=== PATIENT | female | born 1935 | race Caucasian/White ===

== ENCOUNTER 2016-07-10 19:54 | Emergency (ER) | payer OTHER, MEDICAID ==
[2016-07-10] MEDS ORDERED: Albuterol/Ipratropium NEB.SOL* Albuterol 2.5 MG/Ipratropium 0.5 MG 3 ML INH ONE (20:37)
--- NOTE | 2016-07-10 20:47 | UC ---
Respiratory Complaint HPI - HPI Summary HPI Summary: Cough, SOB, feverish, achy since 2 days ago. Hx of COPD and frequent pneumonia since lung CA in 2013. Has been hospitalized for this in the past. 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 ?: No Onset/Duration: Gradual Onset, Lasting Days Timing: Constant Severity Initially: Mild Severity Currently: Moderate Character: Cough: Nonproductive Aggravating Factors: Deep Breaths, Recumbent Position Alleviating Factors: Upright Position Associated Signs And Symptoms: Positive: Fever, Chills, Wheezing, URI, Nasal Congestion - Allergies/Home Medications Allergies/Adverse Reactions: Allergies Allergy/AdvReac Type Severity Reaction Status Date / Time No Known Allergies Allergy Verified 07/10/16 20:09 Home Medications: Home Medications Gabapentin (Once-Daily) [Gralise] 300 mg PO BEDTIME 07/10/16 [History Confirmed 07/10/16] Umeclidin/Vilant 62.5 MDI(NF) [ANORO 62.5/25 Ellipta DEVICE (NF)] 1 puff INH DAILY 07/10/16 [History Confirmed 07/10/16] PMH/Surg Hx/FS Hx/Imm Hx Endocrine History Of: Reports: Diabetes Cardiovascular History Of: Reports: Cardiac Disorders, Hypertension, Congestive Heart Failure, Atrial Fibrillation, Deep Vein Thrombosis Denies: Pacemaker/ICD Respiratory History Of: Reports: COPD Denies: Asthma GI/ History Of: Reports: Ulcer Neurological History Of: Denies: CVA Cancer History Of: Reports: Lung Cancer - Surgical History Surgical History: Yes Surgery Procedure, Year, and Place: AORTIC ANGIOPLASTY. BL MASECTOMY (LEFT OK TO USE PIV). CABG. HYSTERECTOMY. [facility] 2013. CATARACT. LEFT RETINAL SURGERY 2000 - Family History Known Family History: Positive: Hypertension, Diabetes - Social History Occupation: Retired Alcohol Use: None Substance Use Type: None Smoking Status (MU): Former Smoker Have You Smoked in the Last Year: No When Did the Patient Quit Smoking/Using Tobacco: QUIT MANY YEARS AGO - Immunization History Most Recent Influenza Vaccination: none Most Recent Tetanus Shot: UNSURE Most Recent Pneumonia Vaccination: none Review of Systems Constitutional: Fever, Chills, Fatigue Skin: Negative Eyes: Negative ENT: Nasal Discharge Respiratory: Shortness Of Breath, Cough Cardiovascular: Negative Gastrointestinal: Negative Genitourinary: Negative Motor: Negative Neurovascular: Negative Musculoskeletal: Negative Neurological: Negative Psychological: Negative All Other Systems Reviewed And Are Negative: Yes Physical Exam Triage Information Reviewed: Yes Appearance: No Pain Distress, Well-Nourished Vital Signs: Initial Vital Signs Temp 100.4 F 07/10/16 20:15 Pulse 62 07/10/16 20:15 Resp 16 07/10/16 20:15 Pulse Ox 91 07/10/16 20:15 Vital Signs Reviewed: Yes Eye Exam: Normal Eyes: Positive: Conjunctiva Clear ENT: Positive: Hearing grossly normal, Nasal congestion, TMs normal Dental Exam: Other - dentures Neck exam: Normal Respiratory Exam: Other - dry cough Respiratory: Positive: No respiratory distress, Decreased breath sounds, Wheezing Cardiovascular Exam: Normal Cardiovascular: Positive: RRR Musculoskeletal Exam: Normal Neurological Exam: Normal Psychological Exam: Normal Skin Exam: Normal UC Diagnostic Evaluation - Laboratory O2 Sat by Pulse Oximetry: 91 Respiratory Course/Dx - Differential Dx/Diagnosis Provider Diagnoses: influenza. COPD exacerbation Discharge - Discharge Plan Condition: Stable Disposition: HOME Patient Education Materials: Influenza (ED) Referrals: Ora Biggs NP [Primary Care Provider] - 2 Days Additional Instructions: Please follow up with your primary care provider in 2 days for a recheck of your breathing and vital signs.
[2016-07-10] MEDS ORDERED: Oseltamivir CAP* 75 MG PO ONE (20:54)
== END 2016-07-10 21:08 | disposition home or self-care (01) ==
LOC: UCEAST 19:54
DX: J11.1 Influenza due to unidentified influenza virus with other respiratory manifestations (principal); J44.1 Chronic obstructive pulmonary disease with (acute) exacerbation; Z85.118 Personal history of other malignant neoplasm of bronchus and lung; Z95.1 Presence of aortocoronary bypass graft; Z98.49 Cataract extraction status, unspecified eye; Z87.891 Personal history of nicotine dependence
CPT/HCPCS: 87502; 99213; A9270-GY; G0463

== ENCOUNTER 2017-06-12 10:45 | Emergency (ER) | payer MEDICARE, OTHER ==
[2017-06-12 11:11] VITALS: BP 175/82
[2017-06-12] MEDS ORDERED: Albuterol 2.5 MG/3 ML NEB.SOL* (0.083%) INH ONE (11:30)
[2017-06-12] MEDS ORDERED: Ipratropium 0.5MG/2.5ML NEB* 0.5 MG/2.5 ML NEB.SOLN INH ONE (11:31)
--- NOTE | 2017-06-12 11:39 | UC ---
Charles Escalona Nilda, scribed for Bijal Moore MD on 06/12/17 at 1123 . Shortness of Breath HPI - HPI Summary HPI Summary: This patient is an 82 year old F with a PMH COPD, CAD, CABG, DM on intermittent home 02. PT states states a chief complaint of progressive onset constant SOB and wheeze since Saturday Pt was well on Saturday when she went out to dinner. Pt states she has been on oxygen ATC since. Pt reports starting Saturday had body aches, cough, progressive wheeze, headache, decreased appetite and fatigue. pt denies fevers, chills, rash. Pt use her neb yesterday - with some improvement. PT did get a flu vaccine. Patient reports sore throat (last week), wheezing, productive cough (yellow), chills, and fatigue. Pt states shes been treating herself with 250 mg of Amoxicillin for the past 3 days and nebulizer treatment yesterday. 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 Per daughter, O2Sat is normally 91 or 92%. Pt not currently prednisone. Patients medication reviewed this visit. - History of Current Complaint Chief Complaint: UCRespiratory Stated Complaint: FEVER, AND CHEST CONGESTION Time Seen by Provider: 06/12/17 11:12 Hx Obtained From: Patient, Family/Seed Yeast Operator - daughter Onset/Duration: Sudden Onset, Lasting Days Timing: Constant Dyspnea At: Rest Aggrevating Factors: Nothing Alleviating Factors: Nothing Associated Signs & Symptoms: Positive: Cough (Nonproductive), Wheezing, Chills, Other - SOB, fatigue, sore throat - Allergy/Home Medications Allergies/Adverse Reactions: Allergies Allergy/AdvReac Type Severity Reaction Status Date / Time No Known Allergies Allergy Verified 06/12/17 11:07 PMH/Surg Hx/FS Hx/Imm Hx Endocrine History: Diabetes Cardiovascular History: Cardiac Disease, Hypertension Respiratory History: COPD GI/ History: Ulcer - Surgical History Surgical History: Yes Surgery Procedure, Year, and Place: AORTIC ANGIOPLASTY. BL MASECTOMY (LEFT OK TO USE PIV). CABG. HYSTERECTOMY. [facility] 2012. CATARACT. LEFT RETINAL SURGERY 2000 - Family History Known Family History: Positive: Hypertension, Diabetes - Social History Occupation: Retired Alcohol Use: None Substance Use Type: None Smoking Status (MU): Former Smoker Have You Smoked in the Last Year: No When Did the Patient Quit Smoking/Using Tobacco: QUIT MANY YEARS AGO - Immunization History Most Recent Influenza Vaccination: none Most Recent Tetanus Shot: UNSURE Most Recent Pneumonia Vaccination: none Review of Systems Constitutional: Chills, Fatigue ENT: Sore Throat - last week Respiratory: Shortness Of Breath, Cough, Other - wheezing All Other Systems Reviewed And Are Negative: Yes Physical Exam Triage Information Reviewed: Yes Appearance: Well-Nourished, Other: - audible wheeze Vital Signs: Initial Vital Signs Temp 99 F 06/12/17 11:08 Pulse 95 06/12/17 11:08 Resp 22 06/12/17 11:08 BP 175/82 06/12/17 11:08 Pulse Ox 94 06/12/17 11:08 Vital Signs Reviewed: Yes Eye Exam: Normal Eyes: Positive: Conjunctiva Clear ENT Exam: Normal ENT: Positive: Normal ENT inspection, Hearing grossly normal, Pharynx normal, Nasal congestion, TMs normal Neck exam: Normal Neck: Positive: Supple, Nontender, No Lymphadenopathy Respiratory: Positive: Chest non-tender, Wheezing, Other: - audible wheeze, mild increased use of accessory muscles Cardiovascular Exam: Normal Cardiovascular: Positive: RRR, No Murmur, Pulses Normal Abdominal Exam: Normal Abdomen Description: Positive: Nontender, No Organomegaly, Soft Bowel Sounds: Positive: Present Musculoskeletal Exam: Normal Musculoskeletal: Positive: Strength Intact Neurological Exam: Normal Neurological: Positive: Alert Psychological Exam: Normal Skin Exam: Normal Shortness of Breath Dx - Course Course Of Treatment: Blood pressure noted - pt with h/.o htn - pt transfer to ED by EMS. Pt presents with complex med hx requiring increased oxygen need, body aches, cough and fatigue since Saturday. Pt denies fevers. Pt with audible wheeze. Will give duoneb. rapid flu. Pt transfer by EMS. Pt and [place] in agreement with plan - Differential Dx/Diagnosis Provider Diagnoses: wheeze, fatigue. hypoxia - Physician Notification/Consults Discussed Patient Care With: Jim Palencia - ED Physician Time Discussed With Above Provider: 11:34 Instructed by Provider To: Other - discussed pt being sent into ED Discharge - Discharge Plan Condition: Good Disposition: TRANS HIGHER LVL OF CARE FAC Referrals: Ora Biggs, COSMETIC COUNSELOR [Primary Care Provider] - The documentation as recorded by the Charles riley Nilda accurately reflects the service I personally performed and the decisions made by me, Bijal Moore MD.
== END 2017-06-12 12:15 | disposition short-term general hospital (02) ==
LOC: UCEAST 10:45
DX: R06.2 Wheezing (principal); R53.83 Other fatigue; R09.02 Hypoxemia
CPT/HCPCS: 87502; 99213; G0463; J7644

== ENCOUNTER 2017-06-12 12:30 | Inpatient (IN) | payer MEDICARE, OTHER ==
[2017-06-12] MEDS ORDERED: Albuterol/Ipratropium NEB.SOL* Albuterol 2.5 MG/Ipratropium 0.5 MG 3 ML INH ONE (12:38)
[2017-06-12] MEDS ORDERED: methylPREDNISolone 125 MG* 2 ML VIAL IV ONE (12:38)
[2017-06-12 13:04] LABS: ABS Basophils 0 10^3/ul (0-0.2); ABS Eosinophils 0 10^3/ul (0-0.6); ABS Lymphocytes 1.6 10^3/ul (1.0-4.8); ABS Monocytes 0.7 10^3/ul (0-0.8); ABS Neutrophils 9.7 10^3/ul (1.5-7.7); ABS Nucleated RBC 0 10^3/ul; Eosinophil % 0.3 % (0-6); Hematocrit 35 % (35-47); Hemoglobin 11.5 g/dl (12.0-16.0); Mean Corpuscular HGB Conc 33 g/dl (31-36); Mean Corpuscular Hemoglobin 31 pg (27-31); Mean Corpuscular Volume 93 fL (80-97); Mean Platelet Volume 9 um3 (7.4-10.4); Nucleated Red Blood Cells % 0.1; Platelet Count 149 10^3/ul (150-450); Red Blood Count 3.74 10^6/ul (4.0-5.4); Red Cell Distribution Width 14 % (10.5-15); White Blood Count 12.1 10^3/ul (3.5-10.8)
[2017-06-12 13:25] LABS: EGFR Non-African American 47.1 (>60)
--- NOTE | 2017-06-12 13:40 | RAD ---
Indication: Chest pain. Single frontal view of the chest performed at 1308 hours was reviewed. Comparison is made with previous exam dated November 20, 2014. Cardiomegaly is noted. Hyperinflated lung frazier are present. No pleural fluid is identified. Surgical clips are noted in the left axilla. IMPRESSION: CARDIOMEGALY WITH HYPERINFLATED LUNG FRAZIER. NO DEFINITE PNEUMONIA IS IDENTIFIED.
[2017-06-12] MEDS ORDERED: Albuterol/Ipratropium NEB.SOL* Albuterol 2.5 MG/Ipratropium 0.5 MG 3 ML INH PRN (15:04)
[2017-06-12] MEDS ORDERED: Acetaminophen TAB* 325 MG PO PRN (15:04)
[2017-06-12] MEDS ORDERED: Docusate CAP* 100 MG PO PRN (15:08)
[2017-06-12] MEDS ORDERED: Dextrose 50% Syringe 50 ML* 25 GM/50 ML SYRINGE IV PUSH PRN ×3 (15:10→23:45)
[2017-06-12] MEDS ORDERED: cefTRIAXone(*) 1 GM ADVAN/BAG ONE (15:28)
[2017-06-12] MEDS: Enoxaparin(*) 40 MG/0.4 ML SYR SUBCUT SCH (17:27)
--- NOTE | 2017-06-12 17:45 | ECHO ---
Patient: ARLINE MILLER [facility] [place] Rec#: [id number] : 1935 Date: 06/12/2017 Age: 82y Height: 167.64 cm / 66.0 in Weight: 88.45 kg / 194.9 lbs Sex: F BSA: 1.98 Room#: [facility]17 Admit Date#: 06/12/2017 Type: Inpatient Referring: Mitesh Jean MD Reading: Yolette Engel MD Operational Test Mechanic: Diana Bey RDCS CC: Ora Biggs NP Transthoracic Echocardiogram Indication: Shortness of breath, elevated troponin level BP: 165/67 HR: 125 Rhythm: Tachycardia Findings History: COPD, CAD s/p CABG, DM, home O2, murmur, Ao angioplasty, CHF, A-fib, HTN, DVT, lung cancer, breast cancer, smoker, chemotherapy and radiation. Technical Comments: The study quality is fair. The study is technically limited due to poor parasternal windows. Completed at 1630. Left Ventricle: The left ventricular chamber size is normal. Mild to moderate concentric left ventricular hypertrophy is observed. There is normal left ventricular systolic function. The estimated ejection fraction is 55-60%. Post surgical hypokinesis of the interventricular septum is observed consistent with coronary artery bypass. The assessment of diastolic function is non-diagnostic. Left Atrium: The left atrium is mildly dilated. Right Ventricle: The right ventricular cavity size is normal. The right ventricular global systolic function is low normal. Right Atrium: The right atrium is moderately dilated. Aortic Valve: The aortic valve is trileaflet. The aortic valve leaflets are moderately thickened. There is evidence of aortic sclerosis without stenosis. There is a trace of aortic regurgitation. There is no evidence of aortic stenosis. Mitral Valve: There is mitral annular calcification. The mitral valve leaflets are mildly thickened. There is trace to mild mitral regurgitation. There is no evidence of mitral stenosis. Tricuspid Valve: The tricuspid valve leaflets are normal. There is mild tricuspid regurgitation. The right ventricular systolic pressure is estimated at 37 mmHg. There is evidence of mild pulmonary hypertension. There is no tricuspid stenosis. Pulmonic Valve: The pulmonic valve appears normal. There is a trace pulmonic regurgitation. There is no pulmonic stenosis. Pericardium: There is no significant pericardial effusion. A pericardial fat pad is visualized. Aorta: There is no dilatation of the ascending aorta. There is no dilatation of the aortic arch. The aortic root is normal in size. Pulmonary Artery: The main pulmonary artery is not well visualized. Venous: The inferior vena cava appears normal in size. There is a greater than 50% respiratory change in the inferior vena cava dimension. Conclusions Mild to moderate concentric left ventricular hypertrophy is observed. There is normal left ventricular systolic function. The estimated ejection fraction is 55-60%. The right ventricular global systolic function is low normal. The aortic valve leaflets are moderately thickened. There is a trace of aortic regurgitation. There is trace to mild mitral regurgitation. There is mild tricuspid regurgitation. There is evidence of mild pulmonary hypertension: 37 mmHg. No prior echo to compare. Measurements Name Value Normal Range RVIDd (AP) 2D 3.6 cm (0.9 - 2.6) RVDdMajor (2D) 4 cm (2.2 - 4.4) RAd ISD 4CH 6.1 cm (3.4 - 4.9) RA (A4C)W 4.6 cm (2.9 - 4.6) IVSd (2D) 1.3 cm (0.6 - 1) LVPWd (2D) 1.3 cm (0.6 - 1) LVIDd (2D) 3.7 cm (3.6 - 5.4) LVIDs (2D) 2.5 cm - LV FS (2D) 32 % (25 - 45) Aortic Annulus 1.7 cm (1.4 - 2.6) Ao root diameter (2D) 3 cm (2.1 - 3.5) Ascending Ao 2.7 cm (2.1 - 3.4) Aortic arch 1.9 cm (1.8 - 3.4) LA dimension (AP) 2D 4.3 cm (2.3 - 3.8) LAd ISD 4CH 5.3 cm (2.9 - 5.3) LA ISD 4CH W 4.1 cm (2.5 - 4.5) Name Value Normal Range LA ESV SP 4CH (A/L) 57 ml - LA ESV SP 2CH (A/L) 83 ml - LA ESV BP (A/L) 71 ml - LA ESV BP (A/L) index 36 ml/m2 - LA ESV SP 4CH (MOD) 55 ml - LA ESV SP 2CH (MOD) 79 ml - Name Value Normal Range MV E-wave Vmax 1.59 m/sec - MV deceleration time 141.11 msec - MV E:A ratio 145.8 ratio - LV septal e' Vmax 0.1 m/sec - LV lateral e' Vmax 0.14 m/sec - LV E:e' septal ratio 15.9 ratio - LV E:e' lateral ratio 11.36 ratio - Name Value Normal Range AV Vmax 1.9 m/sec - AV VTI 36.15 cm - AV peak gradient 15.05 mmHg - AV mean gradient 7.84 mmHg - LVOT Vmax 1.12 m/sec - LVOT VTI 17.68 cm - LVOT peak gradient 5.09 mmHg - LVOT mean gradient 2.6 mmHg - BART Vmax 0.61 m/sec - Name Value Normal Range TR Vmax 2.9 m/sec - TR peak gradient 34 mmHg - RAP 3 mmHg - RVSP 37 mmHg - IVC diameter 1.9 cm - Name Value Normal Range PV Vmax 1.28 m/sec - PV peak gradient 6.62 mmHg -
[2017-06-12] MEDS ORDERED: Insulin LISPRO* 1 UNITS UNIT SUBCUT ONE ×3 (18:05→23:45)
[2017-06-12] MEDS: Insulin GLARGINE(*) 1 UNITS UNIT SUBCUT SCH (18:32)
[2017-06-12] MEDS: cefTRIAXone(*) 1 GM in NS 0.9% 50 ML* 50 ML IVPB SCH (18:33)
[2017-06-12] MEDS: Insulin LISPRO* 1 UNITS UNIT SUBCUT SCH ×2 (18:33→21:27)
--- NOTE | 2017-06-12 20:20 | HP ---
HISTORY AND PHYSICAL: DATE OF ADMISSION: 06/12/17. TIME OF EVALUATION: 3 o'clock p.m. PRIMARY CARE PHYSICIAN: Ora Biggs NP MASS COMMUNICATIONS INSTRUCTOR: Dr. Webb. CHIEF COMPLAINT: Shortness of breath. HISTORY OF PRESENT ILLNESS: This is an 82-year-old female with history of coronary artery disease, COPD, and lung cancer, who presents with worsening shortness of breath for the last 3 days. She has a history significant for pleural effusion requiring pigtail catheter and twice daily drainage for 6 months in 2013. Since that time, she has remained out of the hospital and in remission from the lung cancer. Three days ago, she began feeling generally weak, ill and not herself as reported by her sister and her daughter. Then 2 days ago, she became more dyspneic. She is usually able to walk up the stairs to her bedroom; however, she has been sleeping on a hospital bed in the living room because she was unable to climb the stairs. She denies orthopnea, palpitations, chest pain or weight gain. She has had a cough productive of yellow sputum. She does have a chronic cough; however, the sputum has changed in consistency over the past two days. She believes she had a fever yesterday. She denies sick contacts. She has a nebulizer at home, which she tried to use , but had no relief. Her daughter gave her some amoxicillin for the past 2 days , which also had no relief. She came to the emergency department today because of worsening dyspnea. She usually wears 2.5 L of oxygen only at night and over the past 2 days, she has been wearing it continuously. She did not check her pulse ox at home. PAST MEDICAL HISTORY: 1. History of lung cancer in 2012, she was treated in [place] and reports having been told that she was in remission since February 2017, at the time of her last scan. 2. PVD, status post Fem-Pop bypass. 3. Left toe amputation. 4. Coronary artery disease, status post CABG in 2007. 5. COPD on 2.5 L home oxygen at night. 6. Type 2 diabetes. ALLERGIES: No known drug allergies. SOCIAL HISTORY: She lives with her sister, Eliz. Her daughter lives next door. She is a former smoker, but quit 5 years ago. She does not drink or use illicit substances. REVIEW OF SYSTEMS: She denies weight loss, weight gain, headaches, blurry vision, nausea, vomiting, diarrhea, or constipation. Review of systems are positive for fever, chills, cough productive of yellow sputum, shortness of breath, and dyspnea on exertion. PHYSICAL EXAMINATION GENERAL: Alert, elderly female in no distress. VITAL SIGNS: Temperature 99 degrees, heart rate 105, respiratory rate 18, pulse ox 99% on 2 liters, blood pressure 176/76. HEENT: Pupils are equal, round, and reactive to light. Moist mucosa. Edentulous. No pharyngeal exudates or erythema. NECK: No cervical adenopathy. JVP to 14 cm. CHEST: Tachycardic. No murmurs. PMI nondisplaced. Lungs with wet crackles at bilateral bases, correction up the lung hernandez. No rhonchi or rales. ABDOMEN: Soft, nontender, nondistended. No guarding or rebound. Well-healed midline incision. EXTREMITIES: Bypass incision is well-healed. Distal pulses 1+. Strength is 5 + throughout. Right great toe amputation. NEUROLOGIC: Oriented x3. Strength is 5+ throughout and sensation is grossly intact. Coordination is intact. She follows complex commands. LABORATORY DATA: White blood cell 12.1, hemoglobin 11.5, platelets 149. Sodium 133, potassium 4.2, chloride 96, bicarb 30, BUN 7, creatinine 1.1, glucose 262, lactic acid 1.5, troponin 1.02, BNP 700. IMAGING: Chest x-ray shows bilateral pleural effusions, left greater than right. EKG shows tachycardia with an old right bundle-branch block in the left axis. ASSESSMENT AND PLAN: This is an 82-year-old female with history of coronary artery disease, chronic obstructive pulmonary disease, lung cancer, and peripheral vascular disease, who presents with shortness of breath and productive cough for 3 days and in the ED is found to have bilateral pleural effusions and a positive troponin. 1. Bilateral pleural effusions. She and her daughter told me that in 2013, she was followed as an outpatient with a pigtail catheter for pleural effusions after she was discharged from here. At that time, per our discharge records, the effusion cytology was negative and she was treated for a parapneumonic effusion. At the time of discharge in 2013, it had resolved; however, she reports following with Dr. Apple, in [place], who inserted a pigtail catheter and her daughter drained the effusion twice a day for 6 months. They are unclear what the etiology of those effusions was. This is a curious piece of her history and I would like to get more records from her vice president business & corporate development regarding the etiology of these effusions that required a pigtail catheter. In the mean time, I did not have an echocardiogram, but this will be helpful, is ordered and I will try to diurese the effusion with IV Lasix depending on what the results from her vice president business & corporate development show. A diagnostic thoracentesis may be indicated. 2. [id number] hypoxic respiratory failure. I suspect that this is most likely secondary to #1 and she will benefit from diuresis. On exam, she does show some evidence of volume overload, so I think an echocardiogram will be helpful. Continue after-load reduction with losartan. 3. Chronic obstructive pulmonary disease. She does not appear to be in exacerbation. Continue p.r.n. nebs. 4. Positive troponin. This is concerning given her known vascular disease and diabetes, which may mask typical chest pain symptoms. In addition, her EKG shows a right bundle-branch block, which makes ischemia more difficult to assess. I will trend her troponins, monitor her on tele and ask Cardiology to see her. This may be related to demand; however, her degree of volume overload may not explain the degree of troponin elevation. I will continue her aspirin and statin, and beta- erasmo, and plan to ask Cardiology to see her tomorrow. 5. History of lung cancer. Again, hopefully the Pulmonology records will be helpful. We will probably need a pleural fluid cytology during this admission to rule out recurrence. 6. Type 2 diabetes. Continue home insulin regimen with Lantus 32 units in the morning and 22 units in the evening. I will add a sliding scale and hypoglycemic precautions. 7. DVT prophylaxis. Lovenox subcu. 8. Disposition. Admit to telemetry with a greater than 2 day inpatient hospitalization. [id number]/[facility] #: [id number] MTDD
[2017-06-12 20:24] LABS: Urine Appearance Clear; Urine Blood Negative (Negative); Urine Color Yellow; Urine Ketones Negative (Negative); Urine Protein 2+(100 mg/dL) (Negative); Urine Specific Gravity 1.016 (1.010-1.030); Urine Urobilinogen Negative (Negative)
[2017-06-12] MEDS: Metoprolol Tartrate TAB* 25 MG PO SCH (20:41)
[2017-06-12] MEDS ORDERED: NS 0.9% 1000 ML* 1,000 ML IV ONE (21:15)
[2017-06-13] MEDS: Insulin LISPRO* 1 UNITS UNIT SUBCUT SCH ×5 (00:06→22:57)
[2017-06-13 05:28] LABS: ABS Basophils 0 10^3/ul (0-0.2); ABS Eosinophils 0 10^3/ul (0-0.6); ABS Lymphocytes 0.9 10^3/ul (1.0-4.8); ABS Monocytes 0.6 10^3/ul (0-0.8); ABS Neutrophils 7.6 10^3/ul (1.5-7.7); ABS Nucleated RBC 0 10^3/ul; Eosinophil % 0 % (0-6); Hematocrit 31 % (35-47); Hemoglobin 10.4 g/dl (12.0-16.0); Lymphocyte % 10.1 % (25-47); Mean Corpuscular HGB Conc 34 g/dl (31-36); Mean Corpuscular Hemoglobin 31 pg (27-31); Mean Corpuscular Volume 93 fL (80-97); Mean Platelet Volume 9 um3 (7.4-10.4); Nucleated Red Blood Cells % 0; Platelet Count 138 10^3/ul (150-450); Red Blood Count 3.35 10^6/ul (4.0-5.4); Red Cell Distribution Width 14 % (10.5-15); White Blood Count 9.2 10^3/ul (3.5-10.8)
[2017-06-13 05:45] LABS: EGFR Non-African American 44.7 (>60)
[2017-06-13] MEDS: Azithromycin TAB* 250 MG PO SCH (08:42)
[2017-06-13] MEDS: Atorvastatin* 80 MG TAB PO SCH (08:42)
[2017-06-13] MEDS: Potassium Chlor TAB* 20 MEQ TAB.ER PO SCH (08:42)
[2017-06-13] MEDS: Metoprolol Tartrate TAB* 25 MG PO SCH (08:42)
[2017-06-13] MEDS: Losartan TAB* 25 MG PO SCH (08:42)
[2017-06-13] MEDS: Furosemide IV* 10 MG/ML VIAL (40 MG) IV SLOW PU SCH ×2 (08:43→16:31)
[2017-06-13] MEDS: Aspirin EC Low Dose* 81 MG TAB.EC PO SCH (08:43)
[2017-06-13] MEDS: Insulin GLARGINE(*) 1 UNITS UNIT SUBCUT SCH ×2 (08:43→17:39)
[2017-06-13] MEDS ORDERED: Pneumococcal *Vac Polyvalent 0.5 ML VIAL IM ONE (09:00)
[2017-06-13] MEDS ORDERED: Metoprolol Tartrate TAB* 25 MG PO SCH (09:00)
[2017-06-13] MEDS ORDERED: Atropine SYRINGE* 0.1 MG/ML 10 ML SYRINGE (1 MG) IV PUSH ONE (10:05)
--- NOTE | 2017-06-13 10:26 | PN ---
Hospitalist Progress Note Date of Service: 06/13/17 Called by RN for bradycardia to 38. I saw and examined Ms. Brown and ordered atropine 0.5mg iv stat. On my arrival, she was feeling flushed and weak; after injection of atropine, her heart rate increased to the 50s and she felt better. EKG shows junctional bradycardia at 50 and an old RBBB with TWIs II,III, avf. She received metoprolol about 1.5 hours before this episode. A/P: junctional bradycardia. Given her history, this is concerning for ischemia -related (vs. med related). Keep atropine at bedside; place transcutaneous pacer pads; I will follow closely. I have a call to cardiology. If she does not respond to atropine, will start glucagon.
--- NOTE | 2017-06-13 16:28 | PN ---
Subjective Date of Service: 06/13/17 Interval History: See my progress note from earlier for am events. Now feeling well with no complaints. Family History: Unchanged from Admission Social History: Unchanged from Admission Past Medical History: Unchanged from Admission Objective Active Medications: Acetaminophen (Tylenol Tab*) 650 mg PO Q4H PRN PRN Reason: FEVER/PAIN Albuterol/Ipratropium (Duoneb (Albuterol 2.5 Mg/Ipratropium 0.5 Mg)) 1 neb INH [id number] AWAKE PRN PRN Reason: sob/wheezing Aspirin (Aspirin Ec Low Dose*) 81 mg PO DAILY [facility] Last Admin: 06/13/17 08:43 Dose: 81 mg Atorvastatin Calcium (Lipitor*) 80 mg PO DAILY [facility] Last Admin: 06/13/17 08:42 Dose: 80 mg Azithromycin (Zithromax Tab*) 250 mg PO DAILY [facility] Last Admin: 06/13/17 08:42 Dose: 250 mg Dextrose (D50w Syringe 50 Ml*) 12.5 gm IV PUSH .FOR FS < 60 - SS PRN PRN Reason: FS < 60 Dextrose (D50w Syringe 50 Ml*) 12.5 gm IV PUSH .FOR FS < 60 - SS PRN PRN Reason: FS < 60 Docusate Sodium (Colace Cap*) 100 mg PO DAILY PRN PRN Reason: CONSTIPATION Enoxaparin Sodium (Lovenox(*)) 40 mg SUBCUT Q24H [facility] Last Admin: 06/12/17 17:27 Dose: 40 mg Furosemide (Lasix Iv*) 40 mg IV SLOW PU 0800,1700 [facility] Last Admin: 06/13/17 08:43 Dose: 40 mg Ceftriaxone Sodium 1 gm/ (Sodium Chloride) 50 mls @ 200 mls/hr IVPB Q24HR@1800 [facility] Last Admin: 06/12/17 18:33 Dose: 200 mls/hr Insulin Glargine (Lantus(*)) 20 units SUBCUT QAM [facility] Last Admin: 06/13/17 08:43 Dose: 20 unit Insulin Glargine (Lantus(*)) 32 units SUBCUT QPM [facility] Last Admin: 06/12/17 18:32 Dose: 32 units Insulin Human Lispro (Humalog*) 0 units SUBCUT 0730,1130,1630,2100 [facility] PRN Reason: Protocol Last Admin: 06/13/17 12:44 Dose: 6 unit Losartan Potassium (Cozaar Tab*) 100 mg PO DAILY [facility] Last Admin: 06/13/17 08:42 Dose: 100 mg Potassium Chloride (Klor Con Er Tab*) 20 meq PO DAILY [facility] Last Admin: 06/13/17 08:42 Dose: 20 meq Vital Signs - 8 hr 06/13/17 06/13/17 06/13/17 10:19 11:31 15:32 Temperature 98.3 F 97.6 F Pulse Rate 47 44 43 Respiratory 20 22 Rate Blood Pressure 137/47 113/44 113/40 (mmHg) O2 Sat by Pulse 100 100 99 Oximetry 06/13/17 16:00 Temperature Pulse Rate Respiratory Rate Blood Pressure (mmHg) O2 Sat by Pulse 99 Oximetry Oxygen Devices in Use Now: None Appearance: no distress, nontoxic Eyes: No Scleral Icterus Ears/Nose/Mouth/Throat: NL Teeth, Lips, Gums Neck: NL Appearance and Movements; NL JVP Cardiovascular: NL Sounds; No Murmurs; No JVD, RRR Abdominal: NL Sounds; No Tenderness; No Distention Lymphatic: No Cervical Adenopathy Extremities: No Edema Skin: No Rash or Ulcers Neurological: Alert and Oriented x 3 Result Diagrams: 06/13/17 05:06 06/13/17 05:06 Microbiology and Other Data: Microbiology 06/12/17 17:30 Nasal Screen MRSA (PCR)(OTTONIEL) - Final Nasal Mrsa Not Detected Assess/Plan/Problems-Billing Assessment: 81 yo female with DM2, CAD s/p CABG, PVD admitted with shortness of breath, found to have b/l pleural effusions. - Patient Problems (1) Junctional bradycardia Current Visit: Yes Status: Acute Code(s): R00.1 - BRADYCARDIA, UNSPECIFIED SNOMED Code(s): 903131950 Comment: Hemodynamically stable, now asymptomatic. S/p 1 dose atropine today. Keep atropine at bedside and pacer pads in place. I am concerned for ischemia given elevated troponin and known coronary disease in setting of diabetes. I've consulted cardiology. Alternatively, she may be very sensitive to beta blockers. I am holding her metoprolol. (2) Acute and chronic respiratory failure with hypoxia Current Visit: Yes Status: Acute Code(s): J96.21 - ACUTE AND CHRONIC RESPIRATORY FAILURE WITH HYPOXIA SNOMED Code(s): 037533536 Comment: LIkely from b/l pleural effusions. Diuresing today. Unclear why she gets them with a normal LV. Need records from her data capture specialist. (3) Coronary artery disease Current Visit: Yes Status: Acute Code(s): I25.10 - ATHSCL HEART DISEASE OF [place] CORONARY ARTERY W/O ANG PCTRS SNOMED Code(s): 68890637 (4) COPD (chronic obstructive pulmonary disease) Current Visit: No Status: Acute Priority: High Onset Date: 01/23/14 Code (s): J44.9 - CHRONIC OBSTRUCTIVE PULMONARY DISEASE, UNSPECIFIED SNOMED Code(s) : 13195211 (5) NSTEMI (non-ST elevated myocardial infarction) Current Visit: Yes Status: Acute Code(s): I21.4 - NON-ST ELEVATION (NSTEMI) MYOCARDIAL INFARCTION SNOMED Code(s): 091388263 Comment: Appreciate cardiology input; I cannot rule out coronary ischemia given the old rbbb, troponin, and risk factors. Will optimize medically.
[2017-06-13] MEDS: Enoxaparin(*) 40 MG/0.4 ML SYR SUBCUT SCH (16:31)
[2017-06-13] MEDS: cefTRIAXone(*) 1 GM in NS 0.9% 50 ML* 50 ML IVPB SCH (17:40)
[2017-06-13] MEDS ORDERED: Atropine SYRINGE* 0.1 MG/ML 10 ML SYRINGE (1 MG) IV PRN (19:28)
--- NOTE | 2017-06-13 20:06 | CONS ---
CC: Hospitalist Service; Dr. Felix; [facility] * CARDIOLOGY CONSULT: DATE OF CONSULT: 06/13/17 HISTORY OF PRESENT ILLNESS: I was asked by the hospitalist service to see this 82- year-old female with extensive cardiac history that includes coronary artery disease, coronary artery bypass grafting, peripheral vascular disease, abdominal aortic aneurysm, multiple surgeries. She is followed up very closely with [facility]. History of lung cancer , history of chemo, history of radiation, history of pleural effusion, needed a pigtail catheter twice daily drainage for 6 months in 2013. She presented to the hospital with progressive symptoms of shortness of breath. She does have known history of COPD and coronary artery disease and type 2 diabetes. She had a troponin at 1 and it did actually go down. She had some history of some sensitivity to beta-erasmo. She was only taking metoprolol at 12.5 mg twice a day. That was increased to 25 and then she had bradycardia with a junctional rhythm in the 30s. However, she is hemodynamically stable with a very stable blood pressure and no chest pain and she is doing actually well with this heart rate, which felt to be beta-erasmo related. She was told that she had some issues with this by her brim stitcher in the past. She has no fever, no chills, no nausea, no vomiting, no hematochezia, no skin rash, no abdominal pain, no syncope, no major swelling in the lower extremities, no nausea, no vomiting is appreciated. She had an echocardiogram that was done yesterday that documented here to have normal left ventricular systolic function. Her review of all other systems is essentially negative. PAST MEDICAL HISTORY: Includes his lung cancer in 2013, history of chemotherapy and radiation treatment and remission since February 2017, history of bilateral pleural effusion, history of peripheral arterial disease with fem- pop bypass, history of abdominal aortic aneurysm, history of left toe amputation , coronary artery disease, CABG in 2007, diabetes mellitus type 2, COPD, on 2.5 L of oxygen. MEDICATIONS: Her medications as an inpatient include: 1. Tylenol 650 mg p.o. q.4 hours p.r.n. for pain or fever. 2. Albuterol inhaler. 3. Aspirin 81 mg daily. 4. Lipitor 80 mg daily. 5. Azithromycin 250 mg daily. 6. Ceftriaxone 1 g daily. 7. Colace 100 mg p.r.n. 8. Lovenox 40 mg subcu q.24 hours. 9. Lasix 40 mg IV. 10. Insulin coverage scale. 11. Cozaar 100 mg daily. 12. Potassium 20 mEq daily. ALLERGIES: No known drug allergies. SOCIAL HISTORY: She lives with her sister. She used to smoke, she quit about 5 years ago. No history of illicit drug use or significant alcohol. PHYSICAL EXAM: General: On exam, she is awake, alert; and oriented. She is not in acute distress. Actually, she feels better than yesterday. Vital Signs : Blood pressure 137/47, pulse is 40 junctional. She is afebrile, 98.3. Head Exam: Normocephalic, atraumatic. Head, ears, nose, and throat essentially benign. Neck is supple. JVP is not elevated. No carotid bruit. No masses in the neck is appreciated. Chest: Diminished air entry bilaterally and some rhonchi at the bases. Heart: Normal S1, S2. No added sounds. No gallops. No rubs. Abdomen: Benign, soft, positive bowel sounds. Extremities: No edema. No cyanosis. No clubbing. Skin Exam: Normal. Psych: Normal affect and mood. BAND INSTRUMENT MAKER: No focal deficits appreciated. DIAGNOSTIC STUDIES/LAB DATA: Her EKG showed her to be in junctional rhythm, heart rate 50 and right bundle branch block, left anterior fascicular block. There is deep T-wave inversion in leads II, III, and aVF appreciated. Labs: White blood cells 9.2, hemoglobin 10.4, hematocrit 31, platelets 138. Chemistry : Sodium 133, potassium 4.1, chloride 99, BUN 21, creatinine 1.16. LFTs are good. Troponin 1.02, but did go down actually after that. CRP 6. Proteins are good, normal. Chest x-ray was reported cardiomegaly, hyperinflated lung field, no definite pneumonia and her echo, which was done yesterday EF 55% to 60 %, [id number] LVH, trace aortic insufficiency, trace to mild mitral insufficiency, mild tricuspid insufficiency, mild pulmonary hypertension. IMPRESSION: The patient is an 82-year-old female with complex medical history: 1. At presentation with symptoms with symptoms of shortness of breath, ruled in by positive troponin for non-ST elevation myocardial infarction. 2. Extensive cardiac history including coronary artery disease status post CABG , [facility] in 2007. 3. Extensive peripheral vascular disease, abdominal aortic aneurysm, status post surgeries in the past. 4. Chronic obstructive pulmonary disease. 5. Long years of tobacco consumption, although she quit 5 years ago. 6. Significant history of sensitivity to beta-erasmo. She was only on 12.5 mg twice a day. 7. Bradycardia and junctional probably related to increase in beta-erasmo dose. 8. Normal left ventricular systolic function by an echo done yesterday. 9. No significant valvular disease. 10. Mild pulmonary hypertension. 11. Chronic obstructive pulmonary disease, oxygen dependent. PLAN: I had a lengthy talk with the patient on hospitalist service. Currently , she is hemodynamically stable. She is not in overt congestive heart failure. She is tolerating her junctional rhythm. Her blood pressure is good. She feels much better clinically according to the patient actually since yesterday. At the present time, I do recommend holding beta-erasmo treatment and do not resume until her heart rate recovers. We discussed cardiac catheterization for further evaluation. She want if anything to be done to follow very closely at cardiology group in [place] given she had been following them for a long period of time and her medical records and procedures were done at [facility] , which I respected. I discussed there with the hospitalist service. She is to avoid significant alcohol caffeinated drinks and stimulants. She is stay well hydrated. She is to keep potassium more than 4, magnesium more than 2. Any further recommendations would be pending her clinical outcome. TIME SPENT: More than half of at least 60 to 65 plus minutes was [id number] in the education and counseling mode answering their questions and further recommendations. [id number]/CPS #: [id number] MTDD
[2017-06-14 06:32] LABS: ABS Basophils 0 10^3/ul (0-0.2); ABS Eosinophils 0.1 10^3/ul (0-0.6); ABS Lymphocytes 1.5 10^3/ul (1.0-4.8); ABS Monocytes 0.9 10^3/ul (0-0.8); ABS Neutrophils 11.3 10^3/ul (1.5-7.7); ABS Nucleated RBC 0 10^3/ul; Hematocrit 31 % (35-47); Hemoglobin 10.3 g/dl (12.0-16.0); Mean Corpuscular HGB Conc 33 g/dl (31-36); Mean Corpuscular Hemoglobin 31 pg (27-31); Mean Corpuscular Volume 94 fL (80-97); Mean Platelet Volume 10 um3 (7.4-10.4); Nucleated Red Blood Cells % 0; Platelet Count 147 10^3/ul (150-450); Red Blood Count 3.34 10^6/ul (4.0-5.4); Red Cell Distribution Width 15 % (10.5-15); White Blood Count 13.9 10^3/ul (3.5-10.8)
[2017-06-14 06:43] LABS: EGFR Non-African American 35.7 (>60)
--- NOTE | 2017-06-14 08:43 | RAD ---
INDICATION: Short of breath COMPARISON: Chest x-ray June 12, 2017; CT chest January 24, 2014 TECHNIQUE: An AP portable view obtained at 0740 hours is submitted. FINDINGS: Bones/Soft Tissues: There are no acute bony findings. There is sternotomy. There clips in left axillary region and right hilum Cardiomediastinal: The cardiac silhouette is abnormal but unchanged. Prior imaging has shown chronic lung parenchymal changes with volume loss. Lungs: Mild diffuse interstitial change with hyperinflation. There may be a component of mild interstitial congestion. There is also mild chronic pleural and parenchymal changes right chest with right infrahilar prominence likely related to chronic lung changes. Pleura: Chronic blunting right costophrenic angle. Small bilateral effusions are not excluded Other: None IMPRESSION: No acute findings. Suspect mild interstitial congestion. Chronic lung findings right chest.
[2017-06-14] MEDS: Furosemide IV* 10 MG/ML VIAL (40 MG) IV SLOW PU SCH ×2 (08:57→17:11)
[2017-06-14] MEDS: Atorvastatin* 80 MG TAB PO SCH (08:57)
[2017-06-14] MEDS: Potassium Chlor TAB* 20 MEQ TAB.ER PO SCH (08:57)
[2017-06-14] MEDS: Losartan TAB* 25 MG PO SCH (08:58)
[2017-06-14] MEDS: Azithromycin TAB* 250 MG PO SCH (08:58)
[2017-06-14] MEDS: Aspirin EC Low Dose* 81 MG TAB.EC PO SCH (08:58)
[2017-06-14] MEDS: Insulin GLARGINE(*) 1 UNITS UNIT SUBCUT SCH ×2 (08:58→17:32)
[2017-06-14] MEDS: Insulin LISPRO* 1 UNITS UNIT SUBCUT SCH ×4 (08:58→21:45)
--- NOTE | 2017-06-14 11:37 | ED ---
Sathya Escalona Angela, scribed for Silas Setih MD on 06/12/17 at 1244 . Shortness of Breath - HPI Summary HPI Summary: This pt is a 82 y/o female presenting to [facility] via EMS from [facility] c/o increased SOB x2 days. Pt additionally reports chills, fever, wheezing, cough, myalgia. She denies chest pain. Pt went to Urgent Care today and she was transferred to the ED. She had rapid influenza tests at Urgent Care, which both resulted negative. PMHx: COPD, DM, lung CA. Pt reports she is on O2 NC at home. 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 - History of Current Complaint Time Seen by Provider: 06/12/17 12:35 Hx Obtained From: Patient Onset/Duration: Lasting Days - 2, Still Present Timing: Constant Current Severity: Moderate Dyspnea At: Rest Aggrevating Factors: Other - exertion Alleviating Factors: Nothing Associated Signs & Symptoms: Cough (Productive), Wheezing, Fever, Chills - Allergy/Home Medications Allergies/Adverse Reactions: Allergies Allergy/AdvReac Type Severity Reaction Status Date / Time No Known Allergies Allergy Verified 06/12/17 11:07 Home Medications: Home Medications Aspirin EC Low Dose* [Ecotrin EC Low Dose 81 MG*] 81 mg PO DAILY 06/12/17 [ History Confirmed 06/12/17] Atorvastatin* [Lipitor*] 80 mg PO DAILY 06/12/17 [History Confirmed 06/12/17] Cholecalciferol TAB* [Vitamin D TAB*] 1,000 unit PO BID 06/12/17 [History Confirmed 06/12/17] Docusate CAP* [Colace Cap*] 100 mg PO DAILY PRN 06/12/17 [History Confirmed ] Furosemide TAB* [Lasix TAB*] 40 mg PO BID 06/12/17 [History Confirmed 06/12/17] Insulin ASPART (NF) [Novolog (NF)] 0 - 100 units SUBCUT TID 06/12/17 [History Confirmed 06/12/17] Insulin GLARGINE(*) [Lantus(*)] 20 units SUBCUT QAM 06/12/17 [History Confirmed 06/12/17] Insulin GLARGINE(*) [Lantus(*)] 32 units SUBCUT QPM 06/12/17 [History Confirmed 06/12/17] Losartan TAB* [Cozaar TAB*] 100 mg PO DAILY 06/12/17 [History Confirmed 06/12/17 ] Magnesium [Optimag 125] 125 mg PO DAILY 06/12/17 [History Confirmed 06/12/17] Multivitamins/Minerals TAB* [Theragran/minerals TAB*] 1 tab PO DAILY 06/12/17 [ History Confirmed 06/12/17] Potassium Chlor TAB* [Klor Con ER TAB*] 20 meq PO DAILY 06/12/17 [History Confirmed 06/12/17] Roflumilast (NF) [Daliresp (NF)] 500 mcg PO DAILY 06/12/17 [History Confirmed ] PMH/Surg Hx/FS Hx/Imm Hx Endocrine/Hematology History: Reports: Hx Diabetes - iddm, Hx Anemia Cardiovascular History: Reports: Hx Congestive Heart Failure, Hx Coronary Artery Disease, Hx Deep Vein Thrombosis, Hx Hypercholesterolemia - HLD, Hx Hypertension, Other Cardiovascular Problems/Disorders - DVT Denies: Hx Pacemaker/ICD Respiratory History: Reports: Hx Chronic Obstructive Pulmonary Disease (COPD), Hx Lung Cancer, Other Respiratory Problems/Disorders - HX OF LUNG CA Denies: Hx Asthma GI History: Reports: Hx Gastroesophageal Reflux Disease, Hx Ulcer Musculoskeletal History: Reports: Hx Back Problems, Other Musculoskeletal History - ulcer left foot Denies: Hx Arthritis, Hx Osteoporosis Sensory History: Reports: Hx Contacts or Glasses - reading Denies: Hx Hearing Aid Opthamlomology History: Reports: Hx Contacts or Glasses - reading Neurological History: Reports: Other Neuro Impairments/Disorders - DIABETIC NEUROPATHY Psychiatric History: Denies: Hx Panic Disorder - Cancer History Cancer Type, Location and Year: breast ca, lung ca; radiation, chemo Hx Chemotherapy: Yes - 02/2013-05/2013 Hx Radiation Therapy: Yes - 02/2013-05/2013 - Surgical History Surgery Procedure, Year, and Place: AORTIC ANGIOPLASTY. BL MASECTOMY (LEFT OK TO USE PIV). CABG. [facility]. [facility]. LEFT RETINAL SURGERY 2000 - Immunization History Date of Tetanus Vaccine: Unk Date of Influenza Vaccine: None Infectious Disease History: Reports: Hx of Known/Suspected MRSA - 2013 - Family History Known Family History: Positive: Hypertension, Diabetes - Social History Alcohol Use: None Substance Use Type: Reports: None Smoking Status (MU): Former Smoker Have You Smoked in the Last Year: No Review of Systems Positive: Fever, Chills Negative: Chest Pain Positive: Shortness Of Breath, Cough Positive: Myalgia All Other Systems Reviewed And Are Negative: Yes Physical Exam - Summary Physical Exam Summary: VITAL SIGNS: Reviewed. GENERAL: Patient is an elderly female who is on 2L of oxygen with no respiratory distress. Pt is able to speak in full sentences. HEAD AND FACE: No signs of trauma. No ecchymosis, hematomas or skull depressions. No sinus tenderness. EYES: PERRLA, EOMI x 2, No injected conjunctiva, no nystagmus. EARS: Hearing grossly intact. Ear canals and tympanic membranes are within normal limits. MOUTH: Oropharynx within normal limits. NECK: Supple, trachea is midline, no adenopathy, no JVD, no carotid bruit, no c- spine tenderness, neck with full ROM. CHEST: Symmetric, no tenderness at palpation LUNGS: Pt has bilateral decreased breath sounds with slight wheezing. CVS: Regular rate and rhythm, S1 and S2 present, no murmurs or gallops appreciated. ABDOMEN: Soft, non-tender. No signs of distention. No rebound no guarding, and no masses palpated. Bowel sounds are normal. EXTREMITIES: FROM in all major joints, no edema, no cyanosis or clubbing. NEURO: Alert and oriented x 3. No acute neurological deficits. Speech is normal and follows commands. SKIN: Dry and warm Triage Information Reviewed: Yes Vital Signs On Initial Exam: Initial Vitals Temp Pulse Resp BP Pulse Ox 99.0 F 105 18 176/76 99 06/12/17 12:34 06/12/17 12:34 06/12/17 12:34 06/12/17 12:34 06/12/17 12:34 Vital Signs Reviewed: Yes Diagnostics - Vital Signs Vital Signs Temp Pulse Resp BP Pulse Ox 06/12/17 16:00 116 161/67 98 06/12/17 15:30 117 163/68 99 06/12/17 15:00 123 164/69 99 06/12/17 14:30 118 165/67 99 06/12/17 14:00 122 141/53 99 06/12/17 13:11 103 18 100 06/12/17 13:00 101 100 06/12/17 12:39 109 99 06/12/17 12:38 176/76 06/12/17 12:34 99.0 F 105 18 99 - Laboratory Lab Results: Lab Results 06/12/17 06/12/17 06/12/17 Range/Units 12:48 12:48 12:48 WBC 12.1 H (3.5-10.8) 10^3/ul RBC 3.74 L (4.0-5.4) 10^6/ul Hgb 11.5 L (12.0-16.0) g/dl Hct 35 (35-47) % MCV 93 (80-97) fL MCH 31 (27-31) pg MCHC 33 (31-36) g/dl RDW 14 (10.5-15) % Plt Count 149 L (150-450) 10^3/ul MPV 9 (7.4-10.4) um3 Neut % (Auto) 80.4 (38-83) % Lymph % (Auto) 13.0 L (25-47) % [place] % (Auto) 5.9 (1-9) % Eos % (Auto) 0.3 (0-6) % Baso % (Auto) 0.4 (0-2) % Absolute Neuts (auto) 9.7 H (1.5-7.7) 10^3/ul Absolute Lymphs (auto) 1.6 (1.0-4.8) 10^3/ul Absolute Monos (auto) 0.7 (0-0.8) 10^3/ul Absolute Eos (auto) 0 (0-0.6) 10^3/ul Absolute Basos (auto) 0 (0-0.2) 10^3/ul Absolute Nucleated RBC 0 10^3/ul Nucleated RBC % 0.1 Sodium 133 (133-145) mmol/L Potassium 4.2 (3.5-5.0) mmol/L Chloride 96 L (101-111) mmol/L Carbon Dioxide 30 (22-32) mmol/L Anion Gap 7 (2-11) mmol/L BUN 16 (6-24) mg/dL Creatinine 1.11 H (0.51-0.95) mg/dL Est GFR ( Amer) 60.5 (>60) Est GFR (Non-Af Amer) 47.1 (>60) BUN/Creatinine Ratio 14.4 (8-20) Glucose 262 H (70-100) mg/dL Lactic Acid (0.5-2.0) mmol/L Calcium 10.0 (8.6-10.3) mg/dL Total Bilirubin 0.70 (0.2-1.0) mg/dL AST 25 (13-39) U/L ALT 15 (7-52) U/L Alkaline Phosphatase 68 (34-104) U/L Total Creatine Kinase 166 (10-223) U/L CK-MB (CK-2) 7.0 H (0.6-6.3) ng/mL Troponin I 1.02 H* (<0.04) ng/mL C-Reactive Protein 5.99 H (< 5.00) mg/L B-Natriuretic Peptide 700 H ( - 100) pg/mL Total Protein 6.8 (6.4-8.9) g/dL Albumin 4.2 (3.2-5.2) g/dL Globulin 2.6 (2-4) g/dL Albumin/Globulin Ratio 1.6 (1-3) 06/12/17 06/12/17 Range/Units 12:48 15:37 WBC (3.5-10.8) 10^3/ul RBC (4.0-5.4) 10^6/ul Hgb (12.0-16.0) g/dl Hct (35-47) % MCV (80-97) fL MCH (27-31) pg MCHC (31-36) g/dl RDW (10.5-15) % Plt Count (150-450) 10^3/ul MPV (7.4-10.4) um3 Neut % (Auto) (38-83) % Lymph % (Auto) (25-47) % [place] % (Auto) (1-9) % Eos % (Auto) (0-6) % Baso % (Auto) (0-2) % Absolute Neuts (auto) (1.5-7.7) 10^3/ul Absolute Lymphs (auto) (1.0-4.8) 10^3/ul Absolute Monos (auto) (0-0.8) 10^3/ul Absolute Eos (auto) (0-0.6) 10^3/ul Absolute Basos (auto) (0-0.2) 10^3/ul Absolute Nucleated RBC 10^3/ul Nucleated RBC % Sodium (133-145) mmol/L Potassium (3.5-5.0) mmol/L Chloride (101-111) mmol/L Carbon Dioxide (22-32) mmol/L Anion Gap (2-11) mmol/L BUN (6-24) mg/dL Creatinine (0.51-0.95) mg/dL Est GFR ( Amer) (>60) Est GFR (Non-Af Amer) (>60) BUN/Creatinine Ratio (8-20) Glucose (70-100) mg/dL Lactic Acid 1.5 (0.5-2.0) mmol/L Calcium (8.6-10.3) mg/dL Total Bilirubin (0.2-1.0) mg/dL AST (13-39) U/L ALT (7-52) U/L Alkaline Phosphatase (34-104) U/L Total Creatine Kinase (10-223) U/L CK-MB (CK-2) (0.6-6.3) ng/mL Troponin I 0.58 H* (<0.04) ng/mL C-Reactive Protein (< 5.00) mg/L B-Natriuretic Peptide ( - 100) pg/mL Total Protein (6.4-8.9) g/dL Albumin (3.2-5.2) g/dL Globulin (2-4) g/dL Albumin/Globulin Ratio (1-3) Result Diagrams: 06/12/17 12:48 06/12/17 12:48 Lab Statement: Any lab studies that have been ordered have been reviewed, and results considered in the medical decision making process. - Radiology Chest XR Xray Interpretation: Positive (See Comments) - IMPRESSION: Cardiomegaly with hyperinflated lung hernandez. No definite pneumonia is identified. Dr. Sethi has reviewed this radiology report. Radiology Interpretation Completed By: Radiologist - EKG 12:43 Cardiac Rate: Tachycardia EKG Rhythm: Atrial Fibrillation - at 101 bpm EKG Interpretation: Right bundle branch block. Course/Dx - Course Assessment/Plan: This pt is a 82 y/o female presenting to [facility] via EMS from [facility] c/o increased SOB x2 days. Pt additionally reports chills, fever, wheezing, cough, myalgia. She denies chest pain. Pt went to Urgent Care today and she was transferred to the ED. She had rapid influenza tests at Urgent Care , which both resulted negative. PMHx: COPD, DM, lung CA. Pt reports she is on O2 NC at home. 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 Test results show WBC of 12.1, creatinine of 1.1, glucose of 262, CKMP of 7, troponin of 1.02, CRP of 5.99, and BNP of 700. Chest XR: Cardiomegaly with hyperinflated lung hernandez. No definite pneumonia is identified. In the initial exam, pt had wheezing so pt was given duoneb and solu-Medrol. Pt did not complain of chest pain. I discussed with Dr. Engel, custodian blood bank, who recommends for the pt to be admitted to the hospitalist. I discussed the case with Dr. Jean, hospitalist, who has agreed to admit the pt. - Diagnoses Differential Diagnosis/HQI/PQRI: Positive: CHF, COPD Exacerbation, LA, Pneumonia , Unstable Angina Provider Diagnoses: NSTEMI (non-ST elevated myocardial infarction), CHF (congestive heart failure) , COPD exacerbation - Physician Notifications Discussed Care of Patient With: Yolette Engel Time Discussed With Above Provider: 13:33 Instructed by Provider To: Other - I discussed pt care with Dr. Engel, custodian blood bank, who reports to consult the hospitalist and call her back. [14:00] I spoke with Dr. Jean, hospitalist, who has agreed to admit the pt. - Critical Care Time Critical Care Time: 75-104 min Discharge - Discharge Plan Condition: Stable Disposition: ADMITTED TO [facility] documentation as recorded by the Sathya riley Angela accurately reflects the service I personally performed and the decisions made by me, Silas Sethi MD.
[2017-06-14] MEDS: Enoxaparin(*) 40 MG/0.4 ML SYR SUBCUT SCH (16:56)
[2017-06-14] MEDS: cefTRIAXone(*) 1 GM in NS 0.9% 50 ML* 50 ML IVPB SCH (17:32)
--- NOTE | 2017-06-14 17:54 | PN ---
Subjective Date of Service: 06/14/17 Interval History: feels better but hasnt' walked outside of room. no orthopnea, chest pain, palpitations, fevers, cough is resolved. Family History: Unchanged from Admission Social History: Unchanged from Admission Past Medical History: Unchanged from Admission Objective Active Medications: Acetaminophen (Tylenol Tab*) 650 mg PO Q4H PRN PRN Reason: FEVER/PAIN Albuterol/Ipratropium (Duoneb (Albuterol 2.5 Mg/Ipratropium 0.5 Mg)) 1 neb INH [id number] AWAKE PRN PRN Reason: sob/wheezing Aspirin (Aspirin Ec Low Dose*) 81 mg PO DAILY [facility] Last Admin: 06/14/17 08:58 Dose: 81 mg Atorvastatin Calcium (Lipitor*) 80 mg PO DAILY [facility] Last Admin: 06/14/17 08:57 Dose: 80 mg Atropine Sulfate (Atropine Syringe*) 0.5 mg IV Q5M PRN PRN Reason: SYMPTOMATIC BRADYCARIA Azithromycin (Zithromax Tab*) 250 mg PO DAILY [facility] Last Admin: 06/14/17 08:58 Dose: 250 mg Dextrose (D50w Syringe 50 Ml*) 12.5 gm IV PUSH .FOR FS < 60 - SS PRN PRN Reason: FS < 60 Dextrose (D50w Syringe 50 Ml*) 12.5 gm IV PUSH .FOR FS < 60 - SS PRN PRN Reason: FS < 60 Docusate Sodium (Colace Cap*) 100 mg PO DAILY PRN PRN Reason: CONSTIPATION Enoxaparin Sodium (Lovenox(*)) 40 mg SUBCUT Q24H [facility] Last Admin: 06/14/17 16:56 Dose: 40 mg Furosemide (Lasix Iv*) 40 mg IV SLOW PU 0800,1700 [facility] Last Admin: 06/14/17 17:11 Dose: 40 mg Ceftriaxone Sodium 1 gm/ (Sodium Chloride) 50 mls @ 200 mls/hr IVPB Q24HR@1800 [facility] Last Admin: 06/14/17 17:32 Dose: 200 mls/hr Insulin Glargine (Lantus(*)) 20 units SUBCUT QAM [facility] Last Admin: 06/14/17 08:58 Dose: 20 unit Insulin Glargine (Lantus(*)) 32 units SUBCUT QPM [facility] Last Admin: 06/14/17 17:32 Dose: 32 units Insulin Human Lispro (Humalog*) 0 units SUBCUT 0730,1130,1630,2100 [facility] PRN Reason: Protocol Last Admin: 06/14/17 17:11 Dose: 2 unit Losartan Potassium (Cozaar Tab*) 100 mg PO DAILY [facility] Last Admin: 06/14/17 08:58 Dose: 100 mg Potassium Chloride (Klor Con Er Tab*) 20 meq PO DAILY [facility] Last Admin: 06/14/17 08:57 Dose: 20 meq Vital Signs - 8 hr 06/14/17 06/14/17 06/14/17 11:11 15:15 16:00 Temperature 98.0 F 98.2 F Pulse Rate 74 74 Respiratory 16 20 Rate Blood Pressure 125/41 135/54 (mmHg) O2 Sat by Pulse 99 99 99 Oximetry Oxygen Devices in Use Now: Nasal Cannula Appearance: alert, well appearing, breathing comfortably Eyes: No Scleral Icterus Ears/Nose/Mouth/Throat: NL Teeth, Lips, Gums Neck: NL Appearance and Movements; NL JVP Respiratory: Symmetrical Chest Expansion and Respiratory Effort, Clear to Auscultation Cardiovascular: - - irregular rhythm Abdominal: NL Sounds; No Tenderness; No Distention Lymphatic: No Cervical Adenopathy Extremities: No Edema Skin: No Rash or Ulcers Neurological: Alert and Oriented x 3 Result Diagrams: 06/14/17 06:00 06/14/17 06:00 Additional Lab and Data: Lab Results 06/12/17 06/12/17 06/12/17 Range/Units 12:48 12:48 12:48 WBC 12.1 H (3.5-10.8) 10^3/ul RBC 3.74 L (4.0-5.4) 10^6/ul Hgb 11.5 L (12.0-16.0) g/dl Hct 35 (35-47) % MCV 93 (80-97) fL MCH 31 (27-31) pg MCHC 33 (31-36) g/dl RDW 14 (10.5-15) % Plt Count 149 L (150-450) 10^3/ul MPV 9 (7.4-10.4) um3 Neut % (Auto) 80.4 (38-83) % Lymph % (Auto) 13.0 L (25-47) % [place] % (Auto) 5.9 (1-9) % Eos % (Auto) 0.3 (0-6) % Baso % (Auto) 0.4 (0-2) % Absolute Neuts (auto) 9.7 H (1.5-7.7) 10^3/ul Absolute Lymphs (auto) 1.6 (1.0-4.8) 10^3/ul Absolute Monos (auto) 0.7 (0-0.8) 10^3/ul Absolute Eos (auto) 0 (0-0.6) 10^3/ul Absolute Basos (auto) 0 (0-0.2) 10^3/ul Absolute Nucleated RBC 0 10^3/ul Nucleated RBC % 0.1 Sodium 133 (133-145) mmol/L Potassium 4.2 (3.5-5.0) mmol/L Chloride 96 L (101-111) mmol/L Carbon Dioxide 30 (22-32) mmol/L Anion Gap 7 (2-11) mmol/L BUN 16 (6-24) mg/dL Creatinine 1.11 H (0.51-0.95) mg/dL Est GFR ( Amer) 60.5 (>60) Est GFR (Non-Af Amer) 47.1 (>60) BUN/Creatinine Ratio 14.4 (8-20) Glucose 262 H (70-100) mg/dL Lactic Acid (0.5-2.0) mmol/L Calcium 10.0 (8.6-10.3) mg/dL Total Bilirubin 0.70 (0.2-1.0) mg/dL AST 25 (13-39) U/L ALT 15 (7-52) U/L Alkaline Phosphatase 68 (34-104) U/L Total Creatine Kinase 166 (10-223) U/L CK-MB (CK-2) 7.0 H (0.6-6.3) ng/mL Troponin I 1.02 H* (<0.04) ng/mL C-Reactive Protein 5.99 H (< 5.00) mg/L B-Natriuretic Peptide 700 H ( - 100) pg/mL Total Protein 6.8 (6.4-8.9) g/dL Albumin 4.2 (3.2-5.2) g/dL Globulin 2.6 (2-4) g/dL Albumin/Globulin Ratio 1.6 (1-3) 06/12/17 06/12/17 Range/Units 12:48 15:37 WBC (3.5-10.8) 10^3/ul RBC (4.0-5.4) 10^6/ul Hgb (12.0-16.0) g/dl Hct (35-47) % MCV (80-97) fL MCH (27-31) pg MCHC (31-36) g/dl RDW (10.5-15) % Plt Count (150-450) 10^3/ul MPV (7.4-10.4) um3 Neut % (Auto) (38-83) % Lymph % (Auto) (25-47) % [place] % (Auto) (1-9) % Eos % (Auto) (0-6) % Baso % (Auto) (0-2) % Absolute Neuts (auto) (1.5-7.7) 10^3/ul Absolute Lymphs (auto) (1.0-4.8) 10^3/ul Absolute Monos (auto) (0-0.8) 10^3/ul Absolute Eos (auto) (0-0.6) 10^3/ul Absolute Basos (auto) (0-0.2) 10^3/ul Absolute Nucleated RBC 10^3/ul Nucleated RBC % Sodium (133-145) mmol/L Potassium (3.5-5.0) mmol/L Chloride (101-111) mmol/L Carbon Dioxide (22-32) mmol/L Anion Gap (2-11) mmol/L BUN (6-24) mg/dL Creatinine (0.51-0.95) mg/dL Est GFR ( Amer) (>60) Est GFR (Non-Af Amer) (>60) BUN/Creatinine Ratio (8-20) Glucose (70-100) mg/dL Lactic Acid 1.5 (0.5-2.0) mmol/L Calcium (8.6-10.3) mg/dL Total Bilirubin (0.2-1.0) mg/dL AST (13-39) U/L ALT (7-52) U/L Alkaline Phosphatase (34-104) U/L Total Creatine Kinase (10-223) U/L CK-MB (CK-2) (0.6-6.3) ng/mL Troponin I 0.58 H* (<0.04) ng/mL C-Reactive Protein (< 5.00) mg/L B-Natriuretic Peptide ( - 100) pg/mL Total Protein (6.4-8.9) g/dL Albumin (3.2-5.2) g/dL Globulin (2-4) g/dL Albumin/Globulin Ratio (1-3) Microbiology and Other Data: Microbiology 06/12/17 17:30 Nasal Screen MRSA (PCR)([place]) - Final Nasal Mrsa Not Detected Assess/Plan/Problems-Billing Assessment: 81 yo female with DM2, CAD s/p CABG, PVD admitted with shortness of breath, found to have b/l pleural effusions. - Patient Problems (1) Junctional bradycardia Current Visit: Yes Status: Acute Code(s): R00.1 - BRADYCARDIA, UNSPECIFIED SNOMED Code(s): 036493729 Comment: resolved. she is extremely sensitive to metoprolol--this should be noted in his records avoid beta blockers (2) Acute and chronic respiratory failure with hypoxia Current Visit: Yes Status: Acute Code(s): J96.21 - ACUTE AND CHRONIC RESPIRATORY FAILURE WITH HYPOXIA SNOMED Code(s): 131528730 Comment: LIkely from b/l pleural effusions. Clinically much better. Plan to continue diuresis, do amb pulse ox tomorrow, and discharge if stable on room air (normally only wears o2 at night) (3) Coronary artery disease Current Visit: Yes Status: Acute Code(s): I25.10 - ATHSCL HEART DISEASE OF [place] CORONARY ARTERY W/O ANG PCTRS SNOMED Code(s): 98119346 Comment: continue asa/statin, no bb due to #1 (4) COPD (chronic obstructive pulmonary disease) Current Visit: No Status: Acute Priority: High Onset Date: 01/23/14 Code (s): J44.9 - CHRONIC OBSTRUCTIVE PULMONARY DISEASE, UNSPECIFIED SNOMED Code(s) : 80659407 Comment: no exacerbation, nebs prn. (5) NSTEMI (non-ST elevated myocardial infarction) Current Visit: Yes Status: Acute Code(s): I21.4 - NON-ST ELEVATION (NSTEMI) MYOCARDIAL INFARCTION SNOMED Code(s): 793976053 Comment: evaluated by cardiology, who recommended medical optimization
[2017-06-15] MEDS: Insulin LISPRO* 1 UNITS UNIT SUBCUT SCH ×2 (07:04→12:47)
[2017-06-15] MEDS: Aspirin EC Low Dose* 81 MG TAB.EC PO SCH (08:47)
[2017-06-15] MEDS: Furosemide IV* 10 MG/ML VIAL (40 MG) IV SLOW PU SCH (08:47)
[2017-06-15] MEDS: Losartan TAB* 25 MG PO SCH (08:47)
[2017-06-15] MEDS: Atorvastatin* 80 MG TAB PO SCH (08:47)
[2017-06-15] MEDS: Potassium Chlor TAB* 20 MEQ TAB.ER PO SCH (08:47)
[2017-06-15] MEDS: Azithromycin TAB* 250 MG PO SCH (08:47)
[2017-06-15] MEDS: Insulin GLARGINE(*) 1 UNITS UNIT SUBCUT SCH (08:48)
[2017-06-15 15:22] VITALS: BP 117/40
--- NOTE | 2017-06-16 12:34 | DS ---
DISCHARGE SUMMARY: DATE OF ADMISSION: 06/12/17 DATE OF DISCHARGE: 06/15/17 ADMITTING PROVIDER: Selam Shafer DO. PRIMARY WHEEL ROLLER: Rodney Webb MD, [facility]. PRIMARY CARE PROVIDER: Ora Biggs NP. ATTENDING PHYSICIANS: Selam Shafer DO, and Arnaud Dixon MD CHIEF COMPLAINT: Shortness of breath. PRINCIPAL DIAGNOSIS: Non-ST elevation myocardial infarction; acute diastolic congestive heart failure exacerbation. HISTORY OF PRESENT ILLNESS AND HOSPITAL COURSE: Michell Brown is an 82-year- old female with past medical history of CAD, status post CABG in 2007, COPD, lung cancer, insulin-dependent diabetes mellitus, chronic hypoxic respiratory failure 2.5 L at night and with lot of exertion, who presents with worsening shortness of breath x3 days. She had a history of significant pleural effusions. We trying pigtail catheter twice daily for 6 months in 2013, but is reportedly in remission from lung cancer since February 2017 at the time of her last scan. Two prior to admission, she started generally feeling weak, ill, not herself, and dyspneic. She needed to sleep in the hospital bed in the living room because she was unable to climb up the stairs though she denied any orthopnea, palpitations, chest pain, or weight gain. She had productive cough with yellow sputum. Although she does have a chronic cough, it did change in consistency over the prior 2 days. She thought she might have had a fever the day prior. Denied any sick contacts. She was given amoxicillin for 2 days from her daughter, which did not relieve her symptoms. She presented to the emergency room, was found to have elevated troponin to 1.0 and concern for volume overload. She had an echocardiogram on the day of admission, which showed preserved ejection fraction of 55% to 60%, nondiagnostic evaluation of diastolic dysfunction, mild pulmonary hypertension 37 mmHg RVSP, trace to mild valvular dysfunction with trace to aortic regurg, trace to mild mitral regurg, mild tricuspid regurg. Her initial EKG showed junctional tachycardia with right bundle branch block, some T-wave inversions in V1 through V3. Next day, she had deep T-wave inversions inferiorly in II, III, and aVF, consistent right bundle branch block and left anterior fascicular block. Dr. Felix of Cardiology was consulted, who recommended outpatient medical management and followup with Dr. Rodney Webb of [facility], who has done all of her CABG and other CAD management. She had some bradycardia to the 30s when her metoprolol was increased from 12.5 mg b.i.d. to 25 mg b.i.d. and then heart rate increased again on the day of discharge with the absence of beta-erasmo, which is being recommended 12.5 mg once daily Toprol with Dr. Rodney Webb. She had some IV diuretics for the mild interstitial pulmonary edema with reported weights of 84.82 kg on the day of discharge down from 88.3 kg. She had been getting 40 mg IV b.i.d. on hospital day #2 through morning of discharge Solu-Medrol 125 mg and 1 L normal saline bolus in the emergency room. She had blood cultures that were no growth x3 days. Sputum culture with normal patrick and MRSA nares screen, which was negative. She also received ceftriaxone 1 g daily and azithromycin 250 mg p.o. daily for potential COPD exacerbation. Patient was feeling much better, nonproductive cough at baseline and satting well on room air with ambulation. Discharged with followup with PCP and outpatient lead press operator. DISCHARGE MEDICATIONS: Include: 1. Metoprolol succinate 12.5 mg p.o. daily (new). 2. Aspirin 81 mg daily. 3. Atorvastatin 80 mg p.o. daily. 4. Docusate 100 mg p.o. daily. 5. Lantus 32 units q. p.m. and 20 units q. a.m. 6. Losartan 100 mg p.o. daily. 7. Potassium chloride 20 mEq p.o. daily. 8. Cholecalciferol 100 units p.o. b.i.d. 9. Lasix 40 mg p.o. b.i.d. 10. Gabapentin 300 mg p.o. q.h.s. 11. Tradjenta (linagliptin) 5 mg p.o. daily. 12. Magnesium 125 mg p.o. daily. 13. Multivitamin 1 tab p.o. daily. 14. Daliresp (roflumilast) 500 mcg p.o. daily. 15. Anoro Ellipta 62.5/25 mg 1 puff inhaled daily. DISCHARGE DIET: Heart healthy, unchanged. ACTIVITY LEVEL: No restrictions. FOLLOWUP: Please follow up with Ora Biggs NP, within 5 days of discharge and Rodney Webb MD, of Cardiology at [facility] within 1 to 2 weeks of discharge for further outpatient workup of NSTEMI and heart failure exacerbation. TIME SPENT ON DISCHARGE: 45 minutes. [id number]/CPS #: [id number] MTDD
== END 2017-06-15 18:30 | disposition home or self-care (01) | DRG 280 ==
LOC: ED 12:30 → MEDTELE 16:50
PROVIDERS: ADMIT Internal Medicine; ATTEND Internal Medicine
DX: I21.4 Non-ST elevation (NSTEMI) myocardial infarction (principal); I50.31 Acute diastolic (congestive) heart failure; J96.21 Acute and chronic respiratory failure with hypoxia; I45.2 Bifascicular block; J44.1 Chronic obstructive pulmonary disease with (acute) exacerbation; I27.20 Pulmonary hypertension, unspecified; E11.51 Type 2 diabetes mellitus with diabetic peripheral angiopathy without gangrene; I25.119 Atherosclerotic heart disease of native coronary artery with unspecified angina pectoris; I11.0 Hypertensive heart disease with heart failure; Z95.1 Presence of aortocoronary bypass graft; Z79.4 Long term (current) use of insulin; Z99.81 Dependence on supplemental oxygen; Z85.118 Personal history of other malignant neoplasm of bronchus and lung; Z87.891 Personal history of nicotine dependence; R00.1 Bradycardia, unspecified; I71.4 Abdominal aortic aneurysm, without rupture; Z92.21 Personal history of antineoplastic chemotherapy; Z92.3 Personal history of irradiation
CPT/HCPCS: 36415; 71045; 80048; 80053; 80076; 81003; 81015; 82550; 82553; 82947; 83605; 83735; 83880; 84484; 85025; 86140; 87040; 87070; 87205; 87502; 87641; 90732; 93005; 93306; 94640; 94760; 99213; 99284; A9270-GY; G0463; J0461; J0696; J1650; J1940; J2930; J7644